=== PATIENT | male | born 1995 | race Caucasian/White ===

== ENCOUNTER 2020-04-24 13:25 | Emergency (ER) | payer SELFPAY ==
[~2020-04-24] VITALS: Ht 167.6 cm; Wt 69.0 kg
--- NOTE | 2020-04-24 13:28 | PHYS DOC ---
Past History Past Medical History: No Pertinent History Past Surgical History: No Surgical History Smoking: Cigarettes, Greater than 1 pack/day Alcohol Use: None Drug Use: Marijuana General Adult EDM: Chief Complaint: Right hand laceration HPI: HPI: Patient is a 24 year old male who presents with a laceration to his right hand. He states he was trying to move a 65" TV before he came in, the TV slipped and he tried to catch it and his hand went through the screen. He does not have any medical issues, had no LOC or head injury, has normal mentation. He is up to date on his tetanus shot (< 5 years). He has no other concerns or medical issues at this time. Review of Systems: Review of Systems: Constitutional: Denies fever or chills Eyes: Denies redness or eye pain HENT: Denies nasal congestion or epistaxis Musculoskeletal: Reports right hand pain Integument: Reports right hand and middle finger laceration Neurologic: Denies headache, focal weakness or sensory changes Complete systems were reviewed and found to be within normal limits, except as documented in this note. Physical Exam: PE: Constitutional: Well developed, well nourished, no acute distress, non-toxic appearance HENT: Normocephalic, atraumatic Eyes: Conjunctiva normal, no discharge Neck: Normal range of motion, no tenderness, supple Lungs & Thorax: No respiratory distress, equal chest rise and fall Skin: Warm, dry, no erythema, lacerations to dorsum of right hand: 6cm to dorsum of hand starting at base of 3rd digit, 3cm laceration to PIP joint on dorsum of right middle finger, and 1cm laceration to fat pad of right thumb. Extremities: No tenderness, ROM intact, no edema Neurologic: Alert and oriented X 3, no focal deficits noted Psychologic: Affect anxious, judgment normal EKG: EKG: [] Radiology/Procedures: Radiology/Procedures: PROCEDURE: HAND RIGHT 3V EXAM: PA, oblique and lateral views of the right hand DATE: 04/24/2020 1:47 PM INDICATION: laceration s/p blunt trauma COMPARISON: No Prior FINDINGS/ IMPRESSION: 1. No acute fracture or dislocation. 2. Numerous radiopaque densities are seen about the long finger and dorsal middle and ring MCP joints likely retained radiopaque foreign bodies. Electronically signed by: Popeye Schwartz MD (04/24/2020 2:18 PM) MADDIE PROCEDURE: HAND RIGHT 3V EXAM: PA, oblique and lateral views of the right hand DATE: 04/24/2020 5:47 PM INDICATION: Reason: hand trauma, s/p repair, irrigation / Spl. Instructions: eval for number of retained foreign bodies / History: COMPARISON: No Prior FINDINGS/ IMPRESSION: Punctate radiopaque densities are seen at the dorsal aspect of the right hand centered at the second and third MCP joint dorsally. In addition radiopaque density at the dorsal aspect of the middle finger PIP joint. In general these are fewer in number. Electronically signed by: Popeye Schwartz MD (04/24/2020 6:22 PM) MADDIE Course & Med Decision Making: Course & Med Decision Making Pertinent Imaging studies reviewed. (See chart for details) Patient presents with multiple lacerations to his right hand after trying to move a large TV by himself in which TV slipped and he ended up cutting his hand and multiple areas for. Tetanus up-to-date. X-ray obtained with signs of significant retained foreign bodies without acute fracture or dislocation. Digital block to right middle finger and laceration block performed. Wound copiously irrigated and cleaned. Wounds explored and significant amount of small foreign body fragments removed. Findings of partial tendon involvement to right middle finger. Lacerations repaired. Repeat XR obtained with continued retained foreign bodies noted although in less number than prior. Dressings and splint applied. Pain addressed. Empiric antibiotics given. Patient stable for discharge with outpatient follow-up with PCP/Hand surgeon. Hand surgeon referral provided. Discussed findings and plan with patient and family, who acknowledge understanding and agreement. Vani Disclaimer: Vani Disclaimer: This electronic medical record was generated, in whole or in part, using a voice recognition dictation system. Splinting Splinting : Location: Right middle finger Pre-Made Type: metal (finger splint) Pre-Proc Neuro Vasc Exam: normal Post-Proc Neuro Vasc Exam: normal, unchanged from pre-exam Laceration/Wound Repair Laceration/Wound Repair #1: Wound Location: upper extremity (right dorsum of hand) Wound's Depth, Shape: irregular Wound Length (cm): 6 Wound Explored: foreign body removed (multiple small glass fragments removed) Irrigated w/ Saline (ccs): 200 (Also ran under running H20 in sink prior for 5min) Anesthesia: Lidocaine w/ Epi (2%) Volume Anesthetic (ccs): 2 Wound Debrided: moderate Wound Repaired With: sutures Suture Size/Type: 5:0, nylon Number of Sutures: 12 (2 horizontal [id number] simple interrupted) Deep Layer Suture Size/Type: 5:0 (Vicryl) Number Deep Layer Sutures: 2 (Tendon repair) Sterile Dressing Applied?: Yes Laceration/Wound Repair #2: Wound Location: upper extremity (right dorsal middle finger at PIP) Wound's Depth, Shape: linear Wound Length (cm): 3 Wound Explored: foreign body removed (small fragments of glass noted) Irrigated w/ Saline (ccs): 200 (Copoius irrigation also performed under running water in sink for 5min.) Anesthesia: Lidocaine w/ Epi (2%) Volume Anesthetic (ccs): 3 (via 4 nerve digital block provided via dorsal approach.) Wound Debrided: moderate Wound Repaired With: sutures Suture Size/Type: 5:0, nylon Number of Sutures: 6 (3 horizontal mattress3 simple interrupted) Deep Layer Suture Size/Type: 5:0 (Vicryl) Number Deep Layer Sutures: 2 (horizontal mattresses for tendon repair) Sterile Dressing Applied?: Yes Splint Applied?: Yes Type of Splint Applied: Aluminum finger splint Laceration/Wound Repair #3: Wound Location: upper extremity (right thumb- fat pad) Wound's Depth, Shape: linear Wound Length (cm): 1 Wound Explored: no foreign body removed Irrigated w/ Saline (ccs): 200 Anesthesia: Lidocaine w/ Epi (2%) Volume Anesthetic (ccs): 2 (via 4 nerve digital block) Wound Debrided: moderate Wound Repaired With: sutures Suture Size/Type: 5:0, nylon Number of Sutures: 2 (simple interrupted) Sterile Dressing Applied?: Yes Progress Verbal consent obtained. Time out performed. Hand hygiene utilized. Wounds cleaned with ChloraPrep. Anesthesia obtained via a 25-gauge hypodermic needle with lidocaine 2% with epinephrine as above. Copious irrigation performed. Wound s well approximated with sutures as above. Patient tolerated procedure well and without difficulty. Empiric antibiotic ointment applied prior to sterile dressing. Finger splint applied to right middle finger. Departure Departure: Impression: Primary Impression: Laceration of hand with tendon involvement including fingers Qualified Codes: S61.411A - Laceration without foreign body of right hand, initial encounter; S61.219A - Laceration without foreign body of unspecified finger without damage to nail, initial encounter; S66.921A - Laceration of unspecified muscle, fascia and tendon at wrist and hand level, right hand, initial encounter Additional Impression: Retained foreign body of hand Disposition: 01 DC HOME SELF CARE/HOMELESS Condition: STABLE Referrals: PCP,NO (PCP) Patient Instructions: Foreign Body, Laceration Care, Adult, [id number], Tendon Injury, Tendon Repair Additional Instructions: Do not soak your wound. You may shower. Clean wound daily with soap and water. Change dressing 2 times daily. Use prescribed antibiotic ointment with each dressing change. Sutures need to be removed in 10-14 days days. Present to your family doctor or local urgent care for removal. You may also present to the ED but it will be an additional visit/charge. After suture removal you may use Vitamin E ointment to soften the wound and prevent scarring. Wear splint unless cleaning wound and/or changing bandage. Follow closely with hand surgeon: You can check with your insurance regarding or call ESelam Holcomb Dat [phone] Orthopedic Surgery Locations: [address] [address] Scripts Mupirocin (MUPIROCIN) 22 Gm Oint...g. 1 ALTHEA TP TID for Laceration, #15 GM Prov: DALE FAGAN DO 04/24/20 Hydrocodone Bit/Acetaminophen (HYDROCODONE-APAP 5-325 ) 1 Each Tablet 0.5-1 TAB PO Q4-6HRS PRN for PAIN, #10 TAB 0 Refills Prov: DALE FAGAN DO 04/24/20 Cephalexin (CEPHALEXIN) 500 Mg Tablet 1 TAB PO QID for wound infection for 10 Days, #40 TAB Prov: DALE FAGAN DO 04/24/20 DALE FAGAN DO Apr 24, 2020 13:28
[2020-04-24] MEDS ORDERED: LIDOCAINE 2%/EPI 1:100,000 20 ML VIAL. IJ ONE (13:45)
[2020-04-24] MEDS ORDERED: NEOMY/BACITR/POLYMYXIN OINT PACKET. TP ONE (13:45)
[2020-04-24] MEDS ORDERED: HYDROcodone/APAP 5/325MG 1 TAB TABLET PO ONE (14:15)
[2020-04-24] MEDS ORDERED: CEPHALEXIN 250 MG CAPSULE PO ONE (14:15)
--- NOTE | 2020-04-24 14:20 | RAD ---
EXAM: PA, oblique and lateral views of the right hand DATE: 04/24/2020 1:47 PM INDICATION: laceration s/p blunt trauma COMPARISON: No Prior FINDINGS/ IMPRESSION: 1. No acute fracture or dislocation. 2. Numerous radiopaque densities are seen about the long finger and dorsal middle and ring MCP joint s likely retained radiopaque foreign bodies. Electronically signed by: Popeye Schwartz MD (04/24/2020 2:18 PM) MADDIE
[2020-04-24] MEDS ORDERED: CEPH500T PO (18:15)
[2020-04-24] MEDS ORDERED: MUPI22OI2 TP (18:15)
[2020-04-24] MEDS ORDERED: HYDR-2155 PO (18:15)
--- NOTE | 2020-04-24 18:24 | RAD ---
EXAM: PA, oblique and lateral views of the right hand DATE: 04/24/2020 5:47 PM INDICATION: Reason: hand trauma, s/p repair, irrigation / Spl. Instructions: eval for number of retai mayito foreign bodies / History: COMPARISON: No Prior FINDINGS/ IMPRESSION: Punctate radiopaque densities are seen at the dorsal aspect of the right hand centered at the second and third MCP joint dorsally. In addition radiopaque density at the dorsal aspect of the middle finge r PIP joint. In general these are fewer in number. Electronically signed by: Popeye Schwartz MD (04/24/2020 6:22 PM) MADDIE
[2020-04-24 18:29] VITALS: BP 121/68
== END 2020-04-24 18:28 | disposition home or self-care (01) ==
LOC: ER 13:25
DX: S61.411A Laceration without foreign body of right hand, initial encounter (principal); S61.222A Laceration with foreign body of right middle finger without damage to nail, initial encounter; S61.011A Laceration without foreign body of right thumb without damage to nail, initial encounter; F17.210 Nicotine dependence, cigarettes, uncomplicated; W25.XXXA Contact with sharp glass, initial encounter; Y93.89 Activity, other specified; Y92.89 Other specified places as the place of occurrence of the external cause; Y99.8 Other external cause status
CPT/HCPCS: 12002; 12042; 73130; 99285-25

== ENCOUNTER 2020-05-08 13:35 | Emergency (ER) | payer SELFPAY ==
[~2020-05-08] VITALS: Ht 167.6 cm; Wt 69.0 kg
[~2020-05-08 13:35] MED LIST: CEPH500T PO; HYDR-2155 PO; MUPI22OI2 TP
[2020-05-08 13:45] VITALS: BP 119/53
--- NOTE | 2020-05-08 14:02 | PHYS DOC ---
Past History Past Medical History: No Pertinent History Past Surgical History: No Surgical History Smoking: Cigarettes, Greater than 1 pack/day Alcohol Use: None Drug Use: Marijuana Adult General Chief Complaint Chief Complaint: WOUND RECHECK/SUTURE REMOVAL HPI HPI Patient is a 24-year-old male presents to the emergency department requesting suture removal. Patient states he had sutures placed here 14 days ago after injuring his hand while catching a TV that was falling. Patient denies any problems with his sutured hand, denies any numbness or tingling, denies any infectious process. Patient states he is here just to get his sutures removed. Patient denies any other physical complaints or physical concerns. Patient states his tetanus status is up-to-date. Review of Systems Review of Systems 14 body systems of review of systems have been reviewed. See HPI for pertinent positives and negative responses, otherwise all other systems are negative, nonpertinent or noncontributory. Allergies Allergies Allergies Coded Allergies Type Severity Reaction Last Updated Verified nut - unspecified Allergy Unknown 04/24/20 Yes Physical Exam Physical Exam Constitutional: Well developed, well nourished, no acute distress, non-toxic appearance. [] HENT: Normocephalic, atraumatic, bilateral external ears normal, oropharynx moist, no oral exudates, nose normal. [] Eyes: PERRLA, EOMI, conjunctiva normal, no discharge. [] Neck: Normal range of motion, no tenderness, supple, no stridor. [] Cardiovascular:Heart rate regular rhythm, no murmur [] Lungs & Thorax: Bilateral breath sounds clear to auscultation [] Abdomen: Bowel sounds normal, soft, no tenderness, no masses, no pulsatile masses. [] Skin: Warm, dry, no erythema, no rash. Patient has laceration repair to right thumb, middle finger, middle finger knuckle, web of hand dorsal aspect between fingers 4 and 5, sutures totaling 22, well-healed, edges approximated well, no infectious signs and symptoms, no drainage noted. Back: No tenderness, no CVA tenderness. [] Extremities: No tenderness, no cyanosis, no clubbing, ROM intact, no edema. Sutured right hand, well-healing sutured wounds, distal cap refill less than 2 seconds, full AROM PROM of affected digits. Neurologic: Alert and oriented X 3, normal motor function, normal sensory function, no focal deficits noted. [] Psychologic: Affect normal, judgement normal, mood normal. [] EKG EKG [] Radiology/Procedures Radiology/Procedures [] Heart Score Risk Factors: Risk Factors: DM, Current or recent (<one month) smoker, HTN, HLP, family history of CAD, obesity. Risk Scores: Risk Factors: DM, Current or recent (<one month) smoker, HTN, HLP, family history of CAD, obesity. Course & Med Decision Making Course & Med Decision Making Pertinent Labs and Imaging studies reviewed. (See chart for details) 24-year-old male, vital signs reviewed, presents emergency department for suture removal. Physical examination found sutures well approximated, no infectious process appreciated. Sutures removed by ED executive consultant. Patient discharged to [facility]. Patient gave verbal understanding of continued wound care, return to ER precautions and concerns, discharged home without incident. Dragon Disclaimer Dragon Disclaimer This electronic medical record was generated, in whole or in part, using a voice recognition dictation system. Departure Departure: Impression: Primary Impression: Encounter for removal of sutures Disposition: 01 DC HOME SELF CARE/HOMELESS Condition: GOOD Referrals: AYLIN ROSS MD (PCP) Patient Instructions: Suture Removal, Sutured Wound Care Additional Instructions: Please return to the emergency department for any signs and symptoms of infectious process. Follow-up with your primary care doctor as needed. EMERGENCY DEPARTMENT GENERAL DISCHARGE INSTRUCTIONS Thank you for coming to [facility] (ED) today and trusting us with you care. We trust that you had a positivie experience in our Emergency Department. If you wish to speak to the department management, you may call the director at [phone]. YOUR FOLLOW UP INSTRUCTIONS ARE FOLLOWS: 1. Do you have a private Doctor? If you do not have a private doctor, please ask for a resource list of physicians or clinics that may be able to assist you with follow up care. 2. The Emergency Physician has interpreted your x-rays. The X-Ray specialist will also review them. If there is a change in the findings, you will be notified in 48 hours when at all possible. 3. A lab test or culture has been done, your results will be reviewed and you will be notified if you need a change in treatment. ADDITIONAL INSTRUCTIONS AND INFORMATION: 1. Your care today has been supervised by a physician who is specially trained in emergency care. Many problems require more than one evaluation for a complete diagnosis and treatment. We recommend that you schedule your follow up appointment as recommended to ensure complete treatment of you illness or injury. If you are unable to obtain follow up care and continue to have a problem, or if your condition worsens, we recommend that you return to the ED. 2. We are not able to safely determine your condition over the phone nor are we able to give sound medical advice over the phone. For these safety reasons, if you call for medical advice we will ask you to come to the ED for further evaluation. 3. If you have any questions regarding these discharge instructions please call the ED at [phone]. SAFETY INFORMATION: In the interest of safety, wellness, and injury prevention; we encourage you to wear your sealbelt, if you smoke; quite smoking, and we encourage family to use a protective helmet for bicycling and other sporting events that present an increased risk for head injury. IF YOUR SYMPTOMS WORSEN OR NEW SYMPTOMS DEVELOP, OR YOU HAVE CONCERNS ABOUT YOUR CONDITION; OR IF YOUR CONDITION WORSENS WHILE YOU ARE WAITING FOR YOUR FOLLOW UP APPOINTMENT; EITHER CONTACT YOUR PRIMARY CARE DOCTOR, THE PHYSICIAN WHOSE NAME AND NUMBER YOU WERE GIVEN, OR RETURN TO THE ED IMMEDIATELY. DALE MIX APRN May 08, 2020 14:02
== END 2020-05-08 14:25 | disposition home or self-care (01) ==
LOC: ER 13:35
DX: S61.011D Laceration without foreign body of right thumb without damage to nail, subsequent encounter (principal); S61.212D Laceration without foreign body of right middle finger without damage to nail, subsequent encounter; F17.210 Nicotine dependence, cigarettes, uncomplicated; Z91.018 Allergy to other foods; W25.XXXD Contact with sharp glass, subsequent encounter
CPT/HCPCS: 99281